=== PATIENT | male | born 1985 | race Caucasian/White ===

== ENCOUNTER 2025-09-25 09:50 | Emergency (ER) | payer OTHER ==
[2025-09-25] MEDS ORDERED: Acetaminophen 500 MG TAB ONE (10:34)
== END 2025-09-25 10:55 | disposition home or self-care (01) ==
LOC: MADERS 09:50
DX: T22.211A Burn of second degree of right forearm, initial encounter (principal); T31.0 Burns involving less than 10% of body surface; F17.210 Nicotine dependence, cigarettes, uncomplicated; Z23 Encounter for immunization; X08.8XXA Exposure to other specified smoke, fire and flames, initial encounter; Y92.009 Unspecified place in unspecified non-institutional (private) residence as the place of occurrence of the external cause
CPT/HCPCS: 16025; 90471; 90715